=== PATIENT | female | born 1950 | race Caucasian/White ===

== ENCOUNTER 2022-08-03 14:30 | Outpatient (RCR) | payer MEDICARE, BC, SELFPAY | END 2022-11-15 13:23 | disposition home or self-care (01) | PROVIDERS: PCP Family Medicine; Visit Provider Family Medicine | DX: M54.50 Low back pain, unspecified (principal); Z51.89 Encounter for other specified aftercare | CPT/HCPCS: 97110; 97140; 97162; 97530 ==

== ENCOUNTER 2023-07-03 10:54 | Outpatient (RCR) | payer MEDICARE, BC, SELFPAY | END 2023-09-26 16:00 | disposition home or self-care (01) | PROVIDERS: PCP Family Medicine; Visit Provider Orthopaedic Surgery | DX: Z98.890 Other specified postprocedural states (principal); Z51.89 Encounter for other specified aftercare | CPT/HCPCS: 97110; 97165; X5282 ==